=== PATIENT | female | born 1970 | race Caucasian/White ===

== ENCOUNTER 2018-06-16 13:12 | Emergency (ER) | payer OTHER ==
[~2018-06-16] VITALS: Wt 64.0 kg
[2018-06-16 13:16] VITALS: BP 150/74; PULSE 71; RESP 20
[2018-06-16] MEDS ORDERED: IBUP-1542 PO (14:01)
--- NOTE | 2018-06-16 14:12 | ERD ---
ER Documentation Chief Complaint Chief Complaint LEFT THUMB PAIN AND SWELLING FROM GETTING COUGH ON PLANTER AND WALL HPI Patient seen in the ED 3. 40-year-old male presents with pain in her left thumb for the last 3 weeks. She hit it on a planter. She has mild restricted motion due to pain. She has no deficits, weakness, redness, fevers. She denies lacerations or puncture wounds. ROS All systems reviewed and are negative except as per history of present illness. Medications Home Meds Active Scripts Ibuprofen* (Motrin*) 600 Mg Tab, 600 MG PO Q6, #20 TAB Prov:WALESKA ENGLE MD 06/16/18 FmHx Family History: No diabetes, No coronary disease, No other Physical Exam Vitals Vital Signs Date Temp Pulse Resp B/P (MAP) Pulse Ox O2 O2 Flow FiO2 Time Delivery Rate 06/16/18 98.8 71 20 150/74 98 13:16 (99) Physical Exam Const: No acute distress Head: Atraumatic Eyes: Normal Conjunctiva ENT: Normal External Ears, Nose and Mouth. Neck: Full range of motion. No meningismus. Resp: Clear to auscultation bilaterally Cardio: Regular rate and rhythm, no murmurs Abd: Soft, non tender, non distended. Normal bowel sounds Skin: No petechiae or rashes Back: No midline or flank tenderness Ext: No cyanosis, or edema. Left thumb there is mild generalized tenderness and swelling on the distal area but has full range of motion of PIP and MCP. No warmth, erythema, deficits. Neur: Awake and alert Psych: Normal Mood and Affect Procedures/MDM X-ray of thumb 2V Interpreted by me: Bones: Displaced fracture through the midportion of the distal phalanx of the left thumb. Joints: No dislocation Foreign body: None the patient has a nondisplaced fracture to the distal phalanx of the left thumb. Patient was placed in a left thumb metal splint was neurovascular intact after splint. She will be discharged home with recommendations for primary care and orthopedic follow-up and return precautions for fevers, redness, new worsening symptoms. Patient advised he may need authorization from primary doctor for orthopedist visit. Departure Diagnosis: Primary Impression: Fracture, finger Encounter type: initial encounter Finger: thumb Fracture type: closed Phalanx: unspecified phalanx Fracture alignment: nondisplaced Laterality: left Qualified Codes: S62.502A - Fracture of unspecified phalanx of left thumb, initial encounter for closed fracture Condition: Stable Patient Instructions: Finger and Toe Fractures (Broken Finger or Toe) Referrals: OLIVER PENN MD [facility] Additional Instructions: esta cabrada . Va al marte doctor/ specialista para mas evaluacon en el proximo semana. posiblemente necesita autorizado de marte doctor primario para specialista. Regresa para fiebre, o mas o nueva simptomas. Va al marte doctor/ specialista para mas evaluacon en el proximo semana. posiblemente necesita autorizado de marte doctor primario para specialista. Regresa para fiebre, o mas o nueva simptomas. WALESKA ENGLE MD Jun 16, 2018 14:12
== END 2018-06-16 14:10 | disposition home or self-care (01) ==
LOC: E/R 13:12
DX: S62.502A Fracture of unspecified phalanx of left thumb, initial encounter for closed fracture (principal); W22.8XXA Striking against or struck by other objects, initial encounter; Y92.9 Unspecified place or not applicable
CPT/HCPCS: 73140; Z7502

== ENCOUNTER 2018-08-22 15:08 | Emergency (ER) | payer OTHER ==
[~2018-08-22] VITALS: Ht 154.9 cm; Wt 64.3 kg
[~2018-08-22 15:08] MED LIST: IBUP-1542 PO
[2018-08-22 15:22] VITALS: BP 130/79; PULSE 77; RESP 16; Ht 154.9 cm; Wt 64.3 kg
--- NOTE | 2018-08-22 16:23 | ERD ---
ER Documentation Chief Complaint Chief Complaint HEADACHES AFTER HITTING HEAD ON CEILING AT NOON TODAY, DENIES LOC/VOMITING HPI Patient is a 48 years old female with PMHx of DM II presenting to the clinic for head and neck pain status post head injury yesterday. Patient reports using the ladder on her porch to fix the house when she accidentally banged her head onto the porch ceiling. Patient denies any LOC, Confusion, bleeding. Patient reports pain is rated 9/10 and is constant and is radiating to her neck. Neck pain is worse with movement and admits to some mild stiffness. Patient denies taking any OTC and denies falling on the floor. ROS All systems reviewed and are negative except as per history of present illness. Medications Home Meds Active Scripts Tizanidine Hcl* (Tizanidine Hcl*) 4 Mg Tablet, 4 MG PO Q8H PRN for SPASTICITY for 7 Days, #21 TAB Prov:JO-ANN QURESHI PA-C 08/22/18 Ibuprofen* (Motrin*) 800 Mg Tab, 800 MG PO Q6, #30 TAB Prov:JO-ANN QURESHI PA-C 08/22/18 Ibuprofen* (Motrin*) 600 Mg Tab, 600 MG PO Q6, #20 TAB Prov:WALESKA ENGLE MD 06/16/18 Allergies Allergies: Coded Allergies: No Known Allergies (Verified Allergy, Unknown, 08/22/18) PMhx/Soc DM II, Tubal Ligation, Appendectomy. History of Surgery: Yes Anesthesia Reaction: No Hx Neurological Disorder: No Hx Respiratory Disorders: No Hx Cardiac Disorders: No Hx Miscellaneous Medical Probl: No FmHx Family History: No diabetes, No coronary disease, No other Physical Exam Vitals Vital Signs Date Temp Pulse Resp B/P (MAP) Pulse Ox O2 O2 Flow FiO2 Time Delivery Rate 08/22/18 99.2 77 16 130/79 97 15:22 (96) Physical Exam Const: No acute distress Head: Mild erythema on scalp without any obvious signs of hematoma. No gross deformity or skin laceration noted. No bleeding. No tenderness to palpation. Eyes: Normal Conjunctiva. PERRLA, No nystagmus. ENT: Normal External Ears, Nose and Mouth. Neck: Full range of motion. No meningismus. Resp: Clear to auscultation bilaterally Cardio: Regular rate and rhythm, no murmurs Neur: Awake and alert. CNII-XII intact. 5/5 upper and lower extremity streng th. Psych: Normal Mood and Affect Results 24 hrs Current Medications Medications Dose Sig/[place] Start Time Status Last (Trade) Ordered Route PRN Stop Time Admin Dose Reason Admin Ibuprofen 800 mg ONCE ONCE 08/22/18 DC 08/22/18 (Motrin) PO 16:30 16:24 08/22/18 16:31 500 mg ONCE ONCE 08/22/18 DC 08/22/18 Methocarbamol PO 16:30 16:42 (Robaxin) 08/22/18 16:31 Procedures/MDM Patient was evaluated for head trauma most likely contusion. Patient has an unremarkable physical exam. Patient has no neurological deficit and does not show any signs of intracranial hemorrhage. No head CT required for today's visit. Patient was given Ibuprofen 800mg and Robaxin 500mg with significant resolution of symptoms. Patient is stable and ready for discharge. Patient was advised to f/u with PCP. Patient will be given Ibuprofen 800mg and Tizanidine 4mg. Departure Diagnosis: Primary Impression: Contusion Encounter type: initial encounter Contusion area: head Contusion of head detail: scalp Qualified Codes: S00.03XA - Contusion of scalp, initial encounter Additional Impression: Cervical paraspinal muscle spasm Condition: Stable Patient Instructions: Contusions (Bruises) Referrals: [facility] Additional Instructions: Paciente aconseja volver a Departamento de urgencias inmediatamente para sntomas nuevos o que empeoran . Paciente aconseja posteriores con el PCP en 2-3 novak . Paciente verbaliza la comprehensin y est de acuerdo con el tratamiento y el curso de accin. Si el paciente no tiene ninguna de atencin primaria pueden seguir con [facility] [address] [place] [address] o [facility] + [address] [address] JO-ANN QURESHI PA-C Aug 22, 2018 16:23
[2018-08-22] MEDS ORDERED: IBUPROFEN 800 MG TAB PO ONE (16:30)
[2018-08-22] MEDS ORDERED: METHOCARBAMOL 500 MG TAB PO ONE (16:30)
[2018-08-22] MEDS ORDERED: TIZA4TAB PO (16:47)
[2018-08-22] MEDS ORDERED: IBUP800T48 PO (16:47)
== END 2018-08-22 17:14 | disposition left against medical advice (07) ==
LOC: FTE 15:08
DX: S00.03XA Contusion of scalp, initial encounter (principal); I10 Essential (primary) hypertension; E11.9 Type 2 diabetes mellitus without complications; M62.838 Other muscle spasm; W22.8XXA Striking against or struck by other objects, initial encounter; Y92.009 Unspecified place in unspecified non-institutional (private) residence as the place of occurrence of the external cause
CPT/HCPCS: Z7502; Z7610; 99283

== ENCOUNTER 2018-09-17 19:00 | Emergency (ER) | payer OTHER ==
[~2018-09-17] VITALS: Ht 162.6 cm; Wt 65.0 kg
[~2018-09-17 19:00] MED LIST changes: +ERYT1OIN6 RIGHT EYE; +IBUP800T48 PO; +TIZA4TAB PO
[2018-09-17 19:21] VITALS: Ht 162.6 cm; Wt 65.0 kg
--- NOTE | 2018-09-17 20:25 | ERD ---
ER Documentation Chief Complaint Chief Complaint right eye pain/redness since yesterday HPI This is a pleasant 48-year-old female with no significant past medical history presents to the emergency department complaining of right medial lower eyelid pain intermittently for the past 1 day. Symptoms have improved overall. Pain is 8/10 in severity and alleviated with ibuprofen. She describes a pulsating sensation. She denies any foreign body sensation, fevers, chills, sore throat, nasal congestion, ROS All systems reviewed and are negative except as per history of present illness. Medications Home Meds Active Scripts Tizanidine Hcl* (Tizanidine Hcl*) 4 Mg Tablet, 4 MG PO Q8H PRN for SPASTICITY for 7 Days, #21 TAB Prov:JO-ANN QURESHI PA-C 08/22/18 Ibuprofen* (Motrin*) 800 Mg Tab, 800 MG PO Q6, #30 TAB Prov:JO-ANN QURESHI PA-C 08/22/18 Ibuprofen* (Motrin*) 600 Mg Tab, 600 MG PO Q6, #20 TAB Prov:WALESKA ENGLE MD 06/16/18 Allergies Allergies: Coded Allergies: No Known Allergies (Verified Allergy, Unknown, 08/22/18) PMhx/Soc History of Surgery: Yes (HYSTERECTOMY,APPENDECTOMY ) Anesthesia Reaction: No Hx Neurological Disorder: No Hx Respiratory Disorders: No Hx Cardiac Disorders: Yes (HLD) Hx Miscellaneous Medical Probl: No Hx Alcohol Use: No Hx Substance Use: No Hx Tobacco Use: No Smoking Status: Current some day smoker FmHx Family History: No diabetes Physical Exam Vitals Vital Signs Date Temp Pulse Resp B/P (MAP) Pulse Ox O2 O2 Flow FiO2 Time Delivery Rate 09/17/18 97.0 67 18 131/69 99 19:21 (89) Physical Exam Const: No acute distress Head: Atraumatic Eyes: Right conjunctival injection. Small hordeolum noted to the medial right lower eyelid. There is no periorbital edema or erythema. ENT: Normal External Ears, Nose and Mouth. Neck: Full range of motion. No meningismus. Resp: No respiratory distress. Skin: No petechiae or rashes Ext: No cyanosis, or edema Neur: Awake and alert Psych: Normal Mood and Affect Procedures/MDM 48-year-old female presents to the emergency department with signs and symptoms most consistent with hordeolum of the right lower eyelid. Patient is nontoxic, well-appearing, with stable vital signs. I doubt periorbital cellulitis, sepsis, or other emergent conditions. Patient will be treated as an outpatient with a prescription for erythromycin ophthalmic ointment. Patient was advised to have 24 to 48-hour follow-up with her primary care physician and ophthalmology and return here immediately for any new or worsening or concerning symptoms. I shared my medical decision making with the patient and she understands and agrees with the diagnosis, plan, need for follow-up, return precautions. Ophthalmologic Assessment: Patient's ocular symptoms have stabilized while they have been evaluated in the department and are appropriate for outpatient work up. No evidence of ruptured globe, retinal detachment, acute angle closure glaucoma, or deep space infection. Plan for 24 hour ophthalmologic follow up. Departure Diagnosis: Primary Impression: Hordeolum Hordeolum type: externum Laterality: right Eyelid: lower Qualified Codes: H00.012 - Hordeolum externum right lower eyelid Condition: Fair Additional Instructions: Muchas edin por [facility] para marte servicio. Esperamos que en marte visita a la augustina de emergencia marte problema medico haya sido solucionado y que se sienta mucho mejor. Para estar seguros que marte mejoria sigue en proceso, le pedimos el favor de hacer judie lesley de seguimiento medico con marte doctor primario en los proximos 2-4 hadley. Lleve con usted estos documentos y las medicinas recetadas. Si shravan sintomas empeoran, NO SE ESPERE, por favor regrese a augustina de emergencia INMEDIATAMENTE. En jessica que usted no tenga un mdico de atencin primaria: Llame al mdico o clnica comunitaria de referencia que aparece abajo julieta las horas de consultorio para hacer judie lesley para que le vean. CLINICAS: [facility] [phone] [facility] 013 [phone] [facility] [phone] [facility] 919 [phone] [facility] [phone] [facility]. [phone] JEANNIE HOLLAND PA-C Sep 17, 2018 20:25
[2018-09-17 20:39] VITALS: BP 130/74; PULSE 64; RESP 16
== END 2018-09-17 20:40 | disposition home or self-care (01) ==
LOC: FTE 19:00
DX: H00.012 Hordeolum externum right lower eyelid (principal); F17.210 Nicotine dependence, cigarettes, uncomplicated
CPT/HCPCS: 99283

== ENCOUNTER 2018-10-21 19:40 | Emergency (ER) | payer SELFPAY ==
[~2018-10-21] VITALS: Ht 162.6 cm; Wt 64.1 kg
[2018-10-21 19:42] VITALS: BP 132/71; PULSE 87; RESP 19; Ht 162.6 cm; Wt 64.1 kg
== END 2018-10-21 23:47 | disposition left against medical advice (07) ==
LOC: E/R 19:40
DX: Z53.21 Procedure and treatment not carried out due to patient leaving prior to being seen by health care provider (principal)